=== PATIENT | male | born 1970 | race Hispanic/Latino ===

== ENCOUNTER 2019-05-10 21:45 | Emergency (ER) | payer BC ==
[2019-05-10] MEDS ORDERED: ASPIRIN 81MG TAB.CHEW ONE (21:57)
[2019-05-10 22:11] LABS: EOSINOPHILS % (AUTO) 3.5 % (0.0-8.0); HEMATOCRIT 44.4 % (42-54); LYMPHOCYTES % (AUTO) 23.6 % (21.0-51.0); MEAN CORPUSCULAR HEMOGLOBIN 31.7 pg (27.0-33.0); MEAN CORPUSCULAR HGB CONC 34.9 g/dL (32.0-36.0); MEAN CORPUSCULAR VOLUME 90.7 fL (79-99); MONOCYTES % (AUTO) 7.7 % (3.0-13.0); NEUTROPHILS % (AUTO) 64.2 % (40.0-77.0); NUCLEATED RED BLOOD CELLS 0.1 % (0.0-0.19); PLATELET COUNT (AUTO) 183 K/uL (130-400); RED CELL DISTRIBUTION WIDTH 12.8 % (11.0-15.5); WHITE BLOOD COUNT (AUTO) 5.2 K/uL (4.8-10.8)
[2019-05-10 22:20] LABS: CREATININE 0.8 mg/dL (0.5-1.5); POTASSIUM 3.5 mmol/L (3.5-5.1)
[2019-05-10 22:27] LABS: INR 0.89 (0.85-1.15); PARTIAL THROMBOPLASTIN TIME 26.4 SEC (26.3-35.5); PROTHROMBIN TIME 9.4 SEC (9.6-11.6)
[2019-05-10 22:33] LABS: BILIRUBIN,TOTAL 0.4 mg/dL (0.2-1.0); TOTAL PROTEIN, SERUM 7.9 g/dL (6.0-8.3)
[2019-05-10] MEDS ORDERED: IBUPROFEN 200 MG TAB ONE (23:52)
== END 2019-05-11 01:16 | disposition home or self-care (01) ==
LOC: EDH 21:45
DX: R07.89 Other chest pain (principal); E78.00 Pure hypercholesterolemia, unspecified; Z88.8 Allergy status to other drugs, medicaments and biological substances
CPT/HCPCS: 36415; 71045; 80053; 82550; 83874; 84484; 85025; 85610; 85730; 93005

== ENCOUNTER 2021-04-09 10:48 | Inpatient (IN) | payer BC ==
[~2021-04-09] VITALS: Ht 175.3 cm; Wt 76.4 kg
[2021-04-09 10:50] VITALS: BP 125/71
[2021-04-09 12:50] VITALS: BP 122/75
[2021-04-09 14:24] LABS: BASOPHILS % (AUTO) 0.3 % (0.0-5.0); HEMATOCRIT 43.2 % (42-54); LYMPHOCYTES % (AUTO) 26.4 % (21.0-51.0); MEAN CORPUSCULAR HGB CONC 34.5 g/dL (32.0-36.0); MEAN CORPUSCULAR VOLUME 89.8 fL (79-99); MONOCYTES % (AUTO) 7.1 % (3.0-13.0); NEUTROPHILS % (AUTO) 65.7 % (40.0-77.0); PLATELET COUNT (AUTO) 117 K/uL (130-400); RED BLOOD CELL COUNT(AUTO) 4.81 MIL/uL (4.50-6.20); RED CELL DISTRIBUTION WIDTH 11.7 % (11.0-15.5); WHITE BLOOD COUNT (AUTO) 3.6 K/uL (4.8-10.8)
[2021-04-09 14:24] LABS: APPEARANCE,URINE Clear (CLEAR); BILIRUBIN,URINE Negative (NEGATIVE); COLOR,URINE Yellow (YELLOW); GLUCOSE, URINE (UA) >=1000 mg/dL (NEGATIVE); KETONES,URINE Trace mg/dL (NEGATIVE); LEUKOCYTE ESTERASE ,URINE Negative (NEGATIVE); NITRATE,URINE Negative (NEGATIVE); OCCULT BLOOD,URINE Negative (NEGATIVE); PH,URINE 6.5 (5.0-8.0); PROTEIN,URINE POS 1+ mg/dL (NEGATIVE)
[2021-04-09] MEDS ORDERED: DEXAMETHASONE SOD PHOSPHATE 10MG/ML 1ML VIAL ONE (14:27)
[2021-04-09 14:29] LABS: CREATININE 0.8 mg/dL (0.5-1.5); POTASSIUM 3.6 mmol/L (3.5-5.1)
[2021-04-09 14:34] LABS: ALBUMIN 3.1 g/dL (3.5-5.0); BILIRUBIN,TOTAL 0.4 mg/dL (0.2-1.0); TOTAL PROTEIN, SERUM 6.6 g/dL (6.0-8.3)
[2021-04-09 14:42] VITALS: BP 129/76
[2021-04-09 14:50] LABS: RBC,URINE 0-1 /HPF (0-1); WBC,URINE 0-1 /HPF (0-1)
[2021-04-09 14:51] LABS: BACTERIA,URINE Rare /HPF (None Seen); SQUAMOUS EPITHELIAL CELL,UR Rare /HPF (0-2)
[2021-04-09] MEDS ORDERED: GLUCAGON 1MG KIT 1 MG ML IM PRN ×2 (15:00→16:30)
[2021-04-09] MEDS ORDERED: DEXAMETHASONE IV ONE ×2 (15:00)
[2021-04-09] MEDS ORDERED: ONDANSETRON ODT 4MG TAB PO PRN (15:00)
[2021-04-09] MEDS ORDERED: [UNRECOGNIZED DRUG - OTHER] IV ONE ×2 (15:00)
[2021-04-09] MEDS ORDERED: DEXTROSE 50%-WATER 50 ML DISP.SYRIN IV PRN ×2 (15:00→16:30)
[2021-04-09] MEDS: CEFTRIAXONE 1G VIAL IVP SCH (15:27)
[2021-04-09] MEDS: ACETAMINOPHEN 325 MG TAB PO PRN ×2 (15:39→21:43)
[2021-04-09] MEDS ORDERED: KCL 20 MEQ ERTAB PO PRN (16:30)
[2021-04-09] MEDS ORDERED: POTASSIUM CHLORIDE 20MEQ/100ML 100 ML IV PRN (16:30)
[2021-04-09] MEDS ORDERED: INSULIN R PO SS1 SQ SCH (16:30)
[2021-04-09] MEDS ORDERED: ALBUTEROL INHALER 90MCG/INH IH PRN (16:30)
[2021-04-09] MEDS ORDERED: POTASSIUM CHLORIDE 10% ELIXIR 20 MEQ/15 ML UDCUP PO PRN (16:30)
[2021-04-09] MEDS ORDERED: LIDOCAINE HCL-MPF 1% 2ML VIAL IV PRN (16:30)
[2021-04-09] MEDS: INSULIN HUMULIN R 100 UNIT/ML 3ML SQ SCH ×2 (16:30→21:58)
[2021-04-09 17:12] LABS: CREATINE KINASE, TOTAL 49 U/L (21-232); MYOGLOBIN 22 ng/mL (10-92); TROPONIN I < 0.04 ng/mL (0.00-0.06)
[2021-04-09 18:21] VITALS: BP 115/73
[2021-04-09] MEDS ORDERED: METF-444 PO (18:45)
[2021-04-09] MEDS ORDERED: GLYB5TAB8 PO (18:45)
[2021-04-09 20:11] VITALS: BP 111/66
[2021-04-09] MEDS ORDERED: SOLU-MEDROL 40MG VIAL IVP SCH (21:00)
[2021-04-09] MEDS: DOXYCYCLINE HYCLATE 100 MG TABLET PO SCH (21:42)
[2021-04-09] MEDS: FAMOTIDINE 20MG TAB PO SCH (21:42)
[2021-04-09 23:46] VITALS: BP 120/73
[2021-04-10 04:00] VITALS: BP 107/60
[2021-04-10 04:28] LABS: HEMATOCRIT 41.4 % (42-54); LYMPHOCYTES % (AUTO) 25.9 % (21.0-51.0); MEAN CORPUSCULAR HEMOGLOBIN 30.5 pg (27.0-33.0); MEAN CORPUSCULAR VOLUME 87.2 fL (79-99); MONOCYTES % (AUTO) 9.8 % (3.0-13.0); PLATELET COUNT (AUTO) 123 K/uL (130-400); RED BLOOD CELL COUNT(AUTO) 4.75 MIL/uL (4.50-6.20); RED CELL DISTRIBUTION WIDTH 11.6 % (11.0-15.5); WHITE BLOOD COUNT (AUTO) 3.2 K/uL (4.8-10.8)
[2021-04-10 04:33] LABS: HEMOGLOBIN A1C 10.4 % (4.0-6.0)
[2021-04-10 04:38] LABS: ALBUMIN 2.9 g/dL (3.5-5.0); BILIRUBIN,TOTAL 0.4 mg/dL (0.2-1.0); CREATININE 0.8 mg/dL (0.5-1.5); TOTAL PROTEIN, SERUM 6.2 g/dL (6.0-8.3)
[2021-04-10 08:00] VITALS: BP 126/74
[2021-04-10] MEDS: DOXYCYCLINE HYCLATE 100 MG TABLET PO SCH ×2 (08:44→20:59)
[2021-04-10] MEDS: ASPIRIN 81 MG EC TAB PO SCH (08:44)
[2021-04-10] MEDS: FAMOTIDINE 20MG TAB PO SCH ×2 (08:44→21:00)
[2021-04-10] MEDS: DEXAMETHASONE 4 MG TAB PO SCH (08:44)
[2021-04-10] MEDS: ENOXAPARIN SODIUM 40 MG/0.4 ML SYRINGE SQ SCH (08:44)
[2021-04-10] MEDS: INSULIN HUMULIN R 100 UNIT/ML 3ML SQ SCH ×3 (08:46→18:11)
[2021-04-10] MEDS: GUAIFENESIN-DM 200/20 MG 10 ML PO PRN (11:56)
[2021-04-10 12:00] VITALS: BP 121/69
[2021-04-10] MEDS: CEFTRIAXONE 1G VIAL IVP SCH (14:57)
[2021-04-10 16:00] VITALS: BP 127/66
[2021-04-10 20:00] VITALS: BP 122/68
[2021-04-10 23:48] VITALS: BP 111/75
[2021-04-11] MEDS: INSULIN HUMULIN R 100 UNIT/ML 3ML SQ SCH ×5 (00:26→20:25)
[2021-04-11 03:55] VITALS: BP 122/69
[2021-04-11 04:48] LABS: BASOPHILS % (AUTO) 0.2 % (0.0-5.0); HEMATOCRIT 41.7 % (42-54); LYMPHOCYTES % (AUTO) 21.7 % (21.0-51.0); MEAN CORPUSCULAR HEMOGLOBIN 30.8 pg (27.0-33.0); MEAN CORPUSCULAR HGB CONC 34.8 g/dL (32.0-36.0); MEAN CORPUSCULAR VOLUME 88.5 fL (79-99); MONOCYTES % (AUTO) 8.9 % (3.0-13.0); NEUTROPHILS % (AUTO) 68.7 % (40.0-77.0); PLATELET COUNT (AUTO) 146 K/uL (130-400); RED BLOOD CELL COUNT(AUTO) 4.71 MIL/uL (4.50-6.20); RED CELL DISTRIBUTION WIDTH 11.4 % (11.0-15.5); WHITE BLOOD COUNT (AUTO) 4.4 K/uL (4.8-10.8)
[2021-04-11 05:08] LABS: CREATININE 0.9 mg/dL (0.5-1.5); POTASSIUM 3.8 mmol/L (3.5-5.1)
[2021-04-11 08:04] VITALS: BP 113/75
[2021-04-11] MEDS: ENOXAPARIN SODIUM 40 MG/0.4 ML SYRINGE SQ SCH (08:37)
[2021-04-11] MEDS: DOXYCYCLINE HYCLATE 100 MG TABLET PO SCH ×2 (08:38→20:22)
[2021-04-11] MEDS: FAMOTIDINE 20MG TAB PO SCH ×2 (08:38→20:22)
[2021-04-11] MEDS: ACETAMINOPHEN 325 MG TAB PO PRN (08:38)
[2021-04-11] MEDS: ASPIRIN 81 MG EC TAB PO SCH (08:38)
[2021-04-11] MEDS: DEXAMETHASONE 4 MG TAB PO SCH (08:38)
[2021-04-11 12:02] VITALS: BP 106/76
[2021-04-11] MEDS: CEFTRIAXONE 1G VIAL IVP SCH (15:10)
[2021-04-11 16:00] VITALS: BP 123/82
[2021-04-11 19:00] VITALS: BP 122/79
[2021-04-11] MEDS: GUAIFENESIN-DM 200/20 MG 10 ML PO PRN (20:22)
[2021-04-11 23:00] VITALS: BP 109/63
[2021-04-12 03:19] VITALS: BP 123/63
[2021-04-12] MEDS: INSULIN HUMULIN R 100 UNIT/ML 3ML SQ SCH ×4 (06:14→21:26)
[2021-04-12] MEDS: ASPIRIN 81 MG EC TAB PO SCH (07:55)
[2021-04-12] MEDS: DEXAMETHASONE 4 MG TAB PO SCH (07:55)
[2021-04-12] MEDS: DOXYCYCLINE HYCLATE 100 MG TABLET PO SCH ×2 (07:56→21:25)
[2021-04-12] MEDS: FAMOTIDINE 20MG TAB PO SCH ×2 (07:56→21:25)
[2021-04-12] MEDS: ENOXAPARIN SODIUM 40 MG/0.4 ML SYRINGE SQ SCH (07:57)
[2021-04-12 08:00] VITALS: BP 119/68
[2021-04-12 12:00] VITALS: BP 122/74
[2021-04-12] MEDS: CEFTRIAXONE 1G VIAL IVP SCH (14:51)
[2021-04-12 15:00] VITALS: BP 126/80
[2021-04-12 19:30] VITALS: BP 113/69
[2021-04-12] MEDS: GUAIFENESIN-DM 200/20 MG 10 ML PO PRN (21:58)
[2021-04-12 23:30] VITALS: BP 103/51
[2021-04-13 03:45] VITALS: BP 117/68
[2021-04-13 04:23] LABS: ABG BASE EXCESS -0.4 mmol/L (-2.0-3.0); ABG HCO3 23.1 mmol/L (21.0-28.0); ABG OXYGEN SATURATION 92.9 % (95.0-99.0); ABG PCO2 35 mmHg (35-48)
[2021-04-13 04:51] LABS: HEMATOCRIT 41.6 % (42-54); LYMPHOCYTES % (AUTO) 13.9 % (21.0-51.0); MEAN CORPUSCULAR HEMOGLOBIN 30.8 pg (27.0-33.0); MEAN CORPUSCULAR HGB CONC 35.8 g/dL (32.0-36.0); MEAN CORPUSCULAR VOLUME 86.1 fL (79-99); MONOCYTES % (AUTO) 10.7 % (3.0-13.0); NEUTROPHILS % (AUTO) 74.9 % (40.0-77.0); PLATELET COUNT (AUTO) 173 K/uL (130-400); RED BLOOD CELL COUNT(AUTO) 4.83 MIL/uL (4.50-6.20); RED CELL DISTRIBUTION WIDTH 11.3 % (11.0-15.5); WHITE BLOOD COUNT (AUTO) 5.7 K/uL (4.8-10.8)
[2021-04-13 05:09] LABS: ALBUMIN 2.8 g/dL (3.5-5.0); BILIRUBIN,TOTAL 0.5 mg/dL (0.2-1.0); CREATININE 0.7 mg/dL (0.5-1.5); MAGNESIUM 2.3 mg/dL (1.80-2.40); PHOSPHORUS 3.8 mg/dL (2.5-4.9); POTASSIUM 3.8 mmol/L (3.5-5.1); TOTAL PROTEIN, SERUM 6.8 g/dL (6.0-8.3)
[2021-04-13] MEDS: INSULIN HUMULIN R 100 UNIT/ML 3ML SQ SCH ×4 (06:39→19:59)
[2021-04-13 08:00] VITALS: BP 122/76
[2021-04-13] MEDS: DOXYCYCLINE HYCLATE 100 MG TABLET PO SCH ×2 (08:20→19:40)
[2021-04-13] MEDS: ASPIRIN 81 MG EC TAB PO SCH (08:20)
[2021-04-13] MEDS: DEXAMETHASONE 4 MG TAB PO SCH (08:21)
[2021-04-13] MEDS: ENOXAPARIN SODIUM 40 MG/0.4 ML SYRINGE SQ SCH (08:21)
[2021-04-13] MEDS: FAMOTIDINE 20MG TAB PO SCH ×2 (08:21→19:40)
[2021-04-13] MEDS: ACETAMINOPHEN 325 MG TAB PO PRN (11:41)
[2021-04-13 12:00] VITALS: BP 127/81
[2021-04-13] MEDS: CEFTRIAXONE 1G VIAL IVP SCH (14:37)
[2021-04-13] MEDS: SOLU-MEDROL 125MG VIAL IVP SCH ×2 (14:37→22:00)
[2021-04-13 16:00] VITALS: BP 110/68
[2021-04-13] MEDS: GUAIFENESIN-DM 200/20 MG 10 ML PO PRN (19:57)
[2021-04-13] MEDS: INSULIN GLARGINE 100 UNITS/ML 10 ML VIAL SQ SCH (19:58)
[2021-04-13 21:00] VITALS: BP 118/69
[2021-04-14] VITALS (7 sets, daily range): BP systolic 105–121; BP diastolic 60–77
[2021-04-14] MEDS: SOLU-MEDROL 125MG VIAL IVP SCH ×2 (04:46→20:24)
[2021-04-14 05:07] LABS: CREATININE 0.9 mg/dL (0.5-1.5); CRP QUANTITATIVE 27.3 mg/L (0.00-9.0); POTASSIUM 4.6 mmol/L (3.5-5.1)
[2021-04-14] MEDS: INSULIN HUMULIN R 100 UNIT/ML 3ML SQ SCH ×4 (06:35→20:28)
[2021-04-14] MEDS: DOXYCYCLINE HYCLATE 100 MG TABLET PO SCH ×2 (08:16→20:24)
[2021-04-14] MEDS: ASPIRIN 81 MG EC TAB PO SCH (08:16)
[2021-04-14] MEDS: FAMOTIDINE 20MG TAB PO SCH ×2 (08:16→20:24)
[2021-04-14] MEDS: ENOXAPARIN SODIUM 40 MG/0.4 ML SYRINGE SQ SCH (08:21)
[2021-04-14] MEDS: CEFTRIAXONE 1G VIAL IVP SCH (16:46)
[2021-04-14] MEDS: GUAIFENESIN-DM 200/20 MG 10 ML PO PRN (20:24)
[2021-04-14] MEDS: ACETAMINOPHEN 325 MG TAB PO PRN (20:25)
[2021-04-14] MEDS: INSULIN GLARGINE 100 UNITS/ML 10 ML VIAL SQ SCH (20:27)
[2021-04-15 03:00] VITALS: BP 114/69
[2021-04-15 04:11] LABS: ABG BASE EXCESS 1.9 mmol/L (-2.0-3.0); ABG OXYGEN SATURATION 94.9 % (95.0-99.0); ABG PCO2 39 mmHg (35-48)
[2021-04-15 04:45] LABS: ALBUMIN 2.7 g/dL (3.5-5.0); BILIRUBIN,TOTAL 0.6 mg/dL (0.2-1.0); CREATININE 0.7 mg/dL (0.5-1.5); POTASSIUM 4.2 mmol/L (3.5-5.1); TOTAL PROTEIN, SERUM 6.4 g/dL (6.0-8.3)
[2021-04-15] MEDS: INSULIN HUMULIN R 100 UNIT/ML 3ML SQ SCH ×4 (06:33→20:27)
[2021-04-15 07:36] VITALS: BP 125/75
[2021-04-15] MEDS: FAMOTIDINE 20MG TAB PO SCH ×2 (09:12→20:21)
[2021-04-15] MEDS: DOXYCYCLINE HYCLATE 100 MG TABLET PO SCH ×2 (09:12→20:21)
[2021-04-15] MEDS: ASPIRIN 81 MG EC TAB PO SCH (09:12)
[2021-04-15] MEDS: ENOXAPARIN SODIUM 40 MG/0.4 ML SYRINGE SQ SCH (09:12)
[2021-04-15] MEDS: SOLU-MEDROL 125MG VIAL IVP SCH ×2 (09:12→20:21)
[2021-04-15 12:00] VITALS: BP 126/81
[2021-04-15] MEDS: CEFTRIAXONE 1G VIAL IVP SCH (14:27)
[2021-04-15 16:10] VITALS: BP 110/70
[2021-04-15] MEDS: GUAIFENESIN-DM 200/20 MG 10 ML PO PRN (20:21)
[2021-04-15] MEDS: ACETAMINOPHEN 325 MG TAB PO PRN (20:22)
[2021-04-15] MEDS: INSULIN GLARGINE 100 UNITS/ML 10 ML VIAL SQ SCH (20:28)
[2021-04-15 20:31] VITALS: BP 110/69
[2021-04-16] VITALS (8 sets, daily range): BP systolic 102–130; BP diastolic 49–83
[2021-04-16 04:33] LABS: HEMATOCRIT 44.8 % (42-54); MEAN CORPUSCULAR HEMOGLOBIN 30.4 pg (27.0-33.0); MEAN CORPUSCULAR HGB CONC 34.2 g/dL (32.0-36.0); MEAN CORPUSCULAR VOLUME 88.9 fL (79-99); RED BLOOD CELL COUNT(AUTO) 5.04 MIL/uL (4.50-6.20); RED CELL DISTRIBUTION WIDTH 11.4 % (11.0-15.5); WHITE BLOOD COUNT (AUTO) 9.5 K/uL (4.8-10.8)
[2021-04-16 04:54] LABS: ALBUMIN 2.8 g/dL (3.5-5.0); BILIRUBIN,TOTAL 0.6 mg/dL (0.2-1.0); CREATININE 0.8 mg/dL (0.5-1.5); POTASSIUM 4.5 mmol/L (3.5-5.1); TOTAL PROTEIN, SERUM 6.5 g/dL (6.0-8.3)
[2021-04-16] MEDS: INSULIN HUMULIN R 100 UNIT/ML 3ML SQ SCH ×4 (06:43→21:24)
[2021-04-16] MEDS: SOLU-MEDROL 125MG VIAL IVP SCH ×2 (08:45→21:20)
[2021-04-16] MEDS: FAMOTIDINE 20MG TAB PO SCH ×2 (08:46→21:20)
[2021-04-16] MEDS: DOXYCYCLINE HYCLATE 100 MG TABLET PO SCH ×2 (08:46→21:20)
[2021-04-16] MEDS: ASPIRIN 81 MG EC TAB PO SCH (08:46)
[2021-04-16] MEDS: ENOXAPARIN SODIUM 40 MG/0.4 ML SYRINGE SQ SCH (08:46)
[2021-04-16] MEDS ORDERED: POLYETHYLENE GLYCOL 3350 17 GM POWD.PACK PO ONE (09:00)
[2021-04-16] MEDS: POLYETHYLENE GLYCOL 3350 17 GM POWD.PACK PO SCH (10:28)
[2021-04-16] MEDS: CEFTRIAXONE 1G VIAL IVP SCH (15:21)
[2021-04-16] MEDS: INSULIN GLARGINE 100 UNITS/ML 10 ML VIAL SQ SCH (21:24)
[2021-04-17 04:17] VITALS: BP 112/73
[2021-04-17] MEDS: INSULIN HUMULIN R 100 UNIT/ML 3ML SQ SCH ×2 (05:58→12:14)
[2021-04-17] MEDS: POLYETHYLENE GLYCOL 3350 17 GM POWD.PACK PO SCH (08:38)
[2021-04-17] MEDS: DOXYCYCLINE HYCLATE 100 MG TABLET PO SCH (08:38)
[2021-04-17] MEDS: ASPIRIN 81 MG EC TAB PO SCH (08:38)
[2021-04-17] MEDS: SOLU-MEDROL 125MG VIAL IVP SCH (08:38)
[2021-04-17] MEDS: ENOXAPARIN SODIUM 40 MG/0.4 ML SYRINGE SQ SCH (08:38)
[2021-04-17] MEDS: FAMOTIDINE 20MG TAB PO SCH (08:38)
[2021-04-17 11:03] VITALS: BP 100/66
== END 2021-04-17 15:30 | disposition home or self-care (01) | DRG 177 ==
LOC: EDH 10:48 → EDHIP 14:10 → 2BH 20:54
PROVIDERS: ADMIT Internal Medicine Infectious Disease; ATTEND Internal Medicine Infectious Disease
DX: U07.1 COVID-19 (principal); J12.82 Pneumonia due to coronavirus disease 2019; J96.01 Acute respiratory failure with hypoxia; B37.0 Candidal stomatitis; E11.9 Type 2 diabetes mellitus without complications; E66.9 Obesity, unspecified; E78.00 Pure hypercholesterolemia, unspecified; I10 Essential (primary) hypertension; K12.30 Oral mucositis (ulcerative), unspecified; Z83.3 Family history of diabetes mellitus; Z68.24 Body mass index [BMI] 24.0-24.9, adult
CPT/HCPCS: 36415; 36600; 71045; 80048; 80053; 81001; 82550; 82728; 82803; 82948; 83036; 83615; 83735; 83874; 84100; 84145; 84484; 85025; 85027; 85378; 86140; 87040; 87635; 87804; 93005; 94760; C9803; G0378; J0696; J1100; J1650; J1815; J2930; J8540

== ENCOUNTER 2021-08-17 20:28 | Emergency (ER) | payer BC, OTHER ==
[~2021-08-17] VITALS: Ht 172.7 cm; Wt 83.9 kg
[~2021-08-17 20:28] MED LIST: GLYB5TAB8 PO; METF-444 PO
[2021-08-17 21:07] LABS: APPEARANCE,URINE Clear (CLEAR); BILIRUBIN,URINE Negative (NEGATIVE); COLOR,URINE Yellow (YELLOW); GLUCOSE, URINE (UA) >=1000 mg/dL (NEGATIVE); KETONES,URINE Negative (NEGATIVE); LEUKOCYTE ESTERASE ,URINE Negative (NEGATIVE); NITRATE,URINE Negative (NEGATIVE); OCCULT BLOOD,URINE Negative (NEGATIVE); PH,URINE 6.5 (5.0-8.0); PROTEIN,URINE Negative (NEGATIVE); UROBILINOGEN,URINE 0.2 mg/dL (0.2-1.0)
[2021-08-17 21:17] LABS: RBC,URINE 0-1 /HPF (0-1); WBC,URINE 0-1 /HPF (0-1)
[2021-08-17 21:18] LABS: BASOPHILS % (AUTO) 0.6 % (0.0-5.0); EOSINOPHILS % (AUTO) 3.3 % (0.0-8.0); HEMATOCRIT 42.3 % (42-54); LYMPHOCYTES % (AUTO) 27.8 % (21.0-51.0); MEAN CORPUSCULAR HEMOGLOBIN 30.7 pg (27.0-33.0); MEAN CORPUSCULAR HGB CONC 36.2 g/dL (32.0-36.0); MEAN CORPUSCULAR VOLUME 84.9 fL (79-99); MONOCYTES % (AUTO) 7.5 % (3.0-13.0); NEUTROPHILS % (AUTO) 60.5 % (40.0-77.0); PLATELET COUNT (AUTO) 212 K/uL (130-400); RED BLOOD CELL COUNT(AUTO) 4.98 MIL/uL (4.50-6.20); RED CELL DISTRIBUTION WIDTH 11.4 % (11.0-15.5); WHITE BLOOD COUNT (AUTO) 7.1 K/uL (4.8-10.8)
[2021-08-17 21:18] LABS: BACTERIA,URINE None Seen /HPF (None Seen); SQUAMOUS EPITHELIAL CELL,UR None Seen /HPF (0-2)
[2021-08-17 21:34] LABS: POTASSIUM 3.8 mmol/L (3.5-5.1)
[2021-08-17 21:39] LABS: ALBUMIN 3.8 g/dL (3.5-5.0); BILIRUBIN,TOTAL 0.2 mg/dL (0.2-1.0); TOTAL PROTEIN, SERUM 7.7 g/dL (6.0-8.3)
[2021-08-17] MEDS ORDERED: 0.9%NACL 1000ML 1,000 ML IV ONE (22:00)
[2021-08-17] MEDS ORDERED: INSULIN HUMULIN R 100 UNIT/ML 3ML SQ ONE (22:00)
[2021-08-17 22:49] VITALS: BP 129/79
== END 2021-08-17 22:52 | disposition home or self-care (01) ==
LOC: EDH 20:28
DX: R07.89 Other chest pain (principal); E11.65 Type 2 diabetes mellitus with hyperglycemia; F41.9 Anxiety disorder, unspecified; E78.00 Pure hypercholesterolemia, unspecified; K21.9 Gastro-esophageal reflux disease without esophagitis; Z79.4 Long term (current) use of insulin
CPT/HCPCS: 36415; 71045; 80053; 81001; 82948; 84484; 85025; 93005; 96360; 96372; 99285; J1815; J7030

== ENCOUNTER 2021-11-20 20:55 | Emergency (ER) | payer BC ==
[~2021-11-20] VITALS: Ht 172.7 cm; Wt 83.0 kg
[2021-11-20 21:31] LABS: BASOPHILS % (AUTO) 0.6 % (0.0-5.0); EOSINOPHILS % (AUTO) 0.8 % (0.0-8.0); HEMATOCRIT 43.1 % (42-54); LYMPHOCYTES % (AUTO) 22.2 % (21.0-51.0); MEAN CORPUSCULAR HEMOGLOBIN 30.3 pg (27.0-33.0); MEAN CORPUSCULAR HGB CONC 34.6 g/dL (32.0-36.0); MEAN CORPUSCULAR VOLUME 87.8 fL (79-99); MONOCYTES % (AUTO) 5.3 % (3.0-13.0); NEUTROPHILS % (AUTO) 70.7 % (40.0-77.0); PLATELET COUNT (AUTO) 207 K/uL (130-400); RED BLOOD CELL COUNT(AUTO) 4.91 MIL/uL (4.50-6.20); RED CELL DISTRIBUTION WIDTH 11.9 % (11.0-15.5); WHITE BLOOD COUNT (AUTO) 8.9 K/uL (4.8-10.8)
[2021-11-20 21:50] LABS: ALBUMIN 4.2 g/dL (3.5-5.0); BILIRUBIN,TOTAL 0.4 mg/dL (0.2-1.0); TOTAL PROTEIN, SERUM 7.4 g/dL (6.0-8.3)
[2021-11-20] MEDS ORDERED: MAG/ALUM/SIMETH 30 ML UDCUP PO ONE (22:00)
[2021-11-20 22:04] LABS: APPEARANCE,URINE Cloudy (CLEAR); BILIRUBIN,URINE Negative (NEGATIVE); COLOR,URINE Yellow (YELLOW); GLUCOSE, URINE (UA) Negative (NEGATIVE); KETONES,URINE Negative (NEGATIVE); LEUKOCYTE ESTERASE ,URINE Trace (NEGATIVE); NITRATE,URINE Negative (NEGATIVE); OCCULT BLOOD,URINE Negative (NEGATIVE); PH,URINE 7.5 (5.0-8.0); PROTEIN,URINE Negative (NEGATIVE)
[2021-11-20 22:21] LABS: AMPHET/METH SCREEN,URINE NEGATIVE (NEGATIVE); BARBITURATE SCREEN, URINE NEGATIVE (NEGATIVE); BENZODIAZEPINES SCREEN,URINE NEGATIVE (NEGATIVE); CANNABINOID SCREEN,URINE NEGATIVE (NEGATIVE); COCAINE SCREEN,URINE NEGATIVE (NEGATIVE); OPIATE SCREEN,URINE NEGATIVE (NEGATIVE); PHENCYCLIDINE SCREEN,URINE NEGATIVE (NEGATIVE)
[2021-11-20 22:25] LABS: BACTERIA,URINE None Seen /HPF (None Seen); RBC,URINE None Seen /HPF (0-1); WBC,URINE 0-1 /HPF (0-1)
[2021-11-20] MEDS ORDERED: FAMO-136 PO (23:36)
[2021-11-20 23:49] VITALS: BP 129/82
== END 2021-11-20 23:55 | disposition home or self-care (01) ==
LOC: EDH 20:59
DX: K21.9 Gastro-esophageal reflux disease without esophagitis (principal)
CPT/HCPCS: 36415; 71045; 80053; 80305; 81001; 84484; 85025; 93005

== ENCOUNTER → 2022-01-02 | Outpatient (CLI) | payer OTHER ==
[~2022-01-02] MED LIST changes: +FAMO-136 PO
== END | disposition home or self-care (01) ==
LOC: OIH 12:48
PROVIDERS: ATTEND Internal Medicine
DX: Z13.6 Encounter for screening for cardiovascular disorders (principal); R93.1 Abnormal findings on diagnostic imaging of heart and coronary circulation
CPT/HCPCS: 75571

== ENCOUNTER 2022-04-27 20:35 | Emergency (ER) | payer BC, OTHER ==
[~2022-04-27] VITALS: Ht 175.3 cm; Wt 81.6 kg
[2022-04-27 21:00] VITALS: BP 127/80
[2022-04-27 21:01] LABS: BASOPHILS % (AUTO) 0.8 % (0.0-5.0); EOSINOPHILS % (AUTO) 3.7 % (0.0-8.0); HEMATOCRIT 42.1 % (42-54); LYMPHOCYTES % (AUTO) 14.3 % (21.0-51.0); MEAN CORPUSCULAR HEMOGLOBIN 30.5 pg (27.0-33.0); MEAN CORPUSCULAR HGB CONC 35.6 g/dL (32.0-36.0); MEAN CORPUSCULAR VOLUME 85.7 fL (79-99); MONOCYTES % (AUTO) 9.5 % (3.0-13.0); NEUTROPHILS % (AUTO) 71.2 % (40.0-77.0); PLATELET COUNT (AUTO) 206 K/uL (130-400); RED BLOOD CELL COUNT(AUTO) 4.91 MIL/uL (4.50-6.20); RED CELL DISTRIBUTION WIDTH 11.4 % (11.0-15.5); WHITE BLOOD COUNT (AUTO) 7.5 K/uL (4.8-10.8)
[2022-04-27 21:18] LABS: POTASSIUM 3.7 mmol/L (3.5-5.1)
[2022-04-27 21:23] LABS: ALBUMIN 4.1 g/dL (3.5-5.0); TOTAL PROTEIN, SERUM 7.4 g/dL (6.0-8.3)
[2022-04-27] MEDS ORDERED: HYDR-3421 PO (21:29)
[2022-04-27] MEDS ORDERED: HYDROXYZINE 25 MG TABLET PO ONE (21:30)
[2022-04-27 21:31] LABS: APPEARANCE,URINE CLEAR (CLEAR); BILIRUBIN,URINE NEGATIVE (NEGATIVE); COLOR,URINE YELLOW (YELLOW); GLUCOSE, URINE (UA) NEGATIVE (NEGATIVE); KETONES,URINE 5 mg/dL (NEGATIVE); LEUKOCYTE ESTERASE ,URINE NEGATIVE (NEGATIVE); NITRATE,URINE NEGATIVE (NEGATIVE); OCCULT BLOOD,URINE NEGATIVE (NEGATIVE); PH,URINE 5.5 (5.0-8.0); PROTEIN,URINE NEGATIVE (NEGATIVE)
[2022-04-27] MEDS ORDERED: HYDROXYZINE 25 MG TABLET ONE (21:33)
== END 2022-04-27 21:45 | disposition home or self-care (01) ==
LOC: EDH 20:35
DX: E11.65 Type 2 diabetes mellitus with hyperglycemia (principal); R03.0 Elevated blood-pressure reading, without diagnosis of hypertension; R00.0 Tachycardia, unspecified; F41.9 Anxiety disorder, unspecified; E78.00 Pure hypercholesterolemia, unspecified; K21.9 Gastro-esophageal reflux disease without esophagitis; Z79.84 Long term (current) use of oral hypoglycemic drugs
CPT/HCPCS: 36415; 71045; 80053; 81003; 83690; 84484; 85025; 93005

== ENCOUNTER 2022-12-15 10:39 | Emergency (ER) | payer BC ==
[~2022-12-15] VITALS: Ht 175.3 cm; Wt 82.1 kg
[~2022-12-15 10:39] MED LIST changes: +HYDR-3421 PO
[2022-12-15 11:31] LABS: APPEARANCE,URINE CLEAR (CLEAR); BILIRUBIN,URINE NEGATIVE (NEGATIVE); COLOR,URINE YELLOW (YELLOW); GLUCOSE, URINE (UA) >=1000 mg/dL (NEGATIVE); KETONES,URINE NEGATIVE (NEGATIVE); LEUKOCYTE ESTERASE ,URINE NEGATIVE Leu/uL (NEGATIVE); NITRATE,URINE NEGATIVE (NEGATIVE); OCCULT BLOOD,URINE NEGATIVE (NEGATIVE); PH,URINE 5.5 (5.0-8.0); PROTEIN,URINE NEGATIVE (NEGATIVE); UROBILINOGEN,URINE 0.2 mg/dL (0.2-1.0)
[2022-12-15 11:34] LABS: MUCUS,URINE RARE LPF (None Seen); RBC,URINE 0-1 /HPF (0-1); WBC,URINE 0-1 /HPF (0-1)
[2022-12-15 11:41] LABS: BASOPHILS % (AUTO) 1.1 % (0.0-5.0); EOSINOPHILS % (AUTO) 6.4 % (0.0-8.0); HEMATOCRIT 43.5 % (42-54); LYMPHOCYTES % (AUTO) 27.1 % (21.0-51.0); MEAN CORPUSCULAR HEMOGLOBIN 30.8 pg (27.0-33.0); MEAN CORPUSCULAR HGB CONC 36.1 g/dL (32.0-36.0); MEAN CORPUSCULAR VOLUME 85.3 fL (79-99); MONOCYTES % (AUTO) 5.5 % (3.0-13.0); NEUTROPHILS % (AUTO) 59.4 % (40.0-77.0); PLATELET COUNT (AUTO) 191 K/uL (130-400); RED CELL DISTRIBUTION WIDTH 11.7 % (11.0-15.5); WHITE BLOOD COUNT (AUTO) 5.5 K/uL (4.8-10.8)
[2022-12-15 11:51] LABS: CREATININE 0.9 mg/dL (0.5-1.5); POTASSIUM 3.8 mmol/L (3.5-5.1)
[2022-12-15 12:04] LABS: ALBUMIN 3.7 g/dL (3.5-5.0); TOTAL PROTEIN, SERUM 6.9 g/dL (6.0-8.3)
[2022-12-15] MEDS ORDERED: KETOROLAC 30MG VIAL (30MG/ML) IVP ONE (13:00)
[2022-12-15] MEDS ORDERED: KETOROLAC 30MG VIAL (30MG/ML) ONE (13:07)
[2022-12-15] MEDS ORDERED: NAPR500T6 PO (14:17)
[2022-12-15 14:38] VITALS: BP 120/72
== END 2022-12-15 14:44 | disposition home or self-care (01) ==
LOC: EDH 10:39
DX: N50.812 Left testicular pain (principal); F41.9 Anxiety disorder, unspecified; M19.90 Unspecified osteoarthritis, unspecified site; E11.9 Type 2 diabetes mellitus without complications; E78.00 Pure hypercholesterolemia, unspecified; K21.9 Gastro-esophageal reflux disease without esophagitis; Z79.1 Long term (current) use of non-steroidal anti-inflammatories (NSAID); Z79.84 Long term (current) use of oral hypoglycemic drugs
CPT/HCPCS: 99284; 96374; 80053; 85025; 83605; 81001; 36415; 76870; J1885

== ENCOUNTER 2023-10-31 10:39 | Emergency (ER) | payer BC, SELFPAY ==
[~2023-10-31] VITALS: Ht 175.3 cm; Wt 82.6 kg
[~2023-10-31 10:39] MED LIST changes: +NAPR500T6 PO
[2023-10-31 10:53] VITALS: BP 132/84; PULSE 79; RESP 16; O2SAT 99
[2023-10-31 11:12] LABS: APPEARANCE,URINE CLEAR (CLEAR); BILIRUBIN,URINE NEGATIVE (NEGATIVE); COLOR,URINE LIGHT-YELLOW (YELLOW); GLUCOSE, URINE (UA) >=1000 mg/dL (NEGATIVE); KETONES,URINE NEGATIVE (NEGATIVE); LEUKOCYTE ESTERASE ,URINE NEGATIVE Leu/uL (NEGATIVE); NITRATE,URINE NEGATIVE (NEGATIVE); OCCULT BLOOD,URINE NEGATIVE (NEGATIVE); PROTEIN,URINE NEGATIVE (NEGATIVE); UROBILINOGEN,URINE 0.2 mg/dL (0.2-1.0)
[2023-10-31 11:13] LABS: ADD UA MICROSCOPIC YES
[2023-10-31 11:13] LABS: HEMATOCRIT 44.6 % (42-54); MEAN CORPUSCULAR HEMOGLOBIN 31.2 pg (27.0-33.0); MEAN CORPUSCULAR HGB CONC 35.4 g/dL (32.0-36.0); RED BLOOD CELL COUNT(AUTO) 5.07 MIL/uL (4.50-6.20); RED CELL DISTRIBUTION WIDTH 11.4 % (11.0-15.5); WHITE BLOOD COUNT (AUTO) 6.5 K/uL (4.8-10.8)
[2023-10-31 11:15] LABS: RBC,URINE 0-1 /HPF (0-1); WBC,URINE 0-1 /HPF (0-1)
[2023-10-31 11:25] LABS: CREATININE 0.9 mg/dL (0.5-1.5)
[2023-10-31 11:29] LABS: ALBUMIN 3.9 g/dL (3.5-5.0); BILIRUBIN,TOTAL 0.5 mg/dL (0.2-1.0); TOTAL PROTEIN, SERUM 7.8 g/dL (6.0-8.3)
[2023-10-31] MEDS ORDERED: LACT10SO5 PO (13:01)
== END 2023-10-31 13:21 | disposition home or self-care (01) ==
LOC: EDH 10:39
DX: K59.00 Constipation, unspecified (principal); E11.65 Type 2 diabetes mellitus with hyperglycemia; E86.0 Dehydration; E78.00 Pure hypercholesterolemia, unspecified; F41.9 Anxiety disorder, unspecified; K21.9 Gastro-esophageal reflux disease without esophagitis; M19.90 Unspecified osteoarthritis, unspecified site; Z79.84 Long term (current) use of oral hypoglycemic drugs
CPT/HCPCS: 36415; 74018; 80053; 81001; 83690; 85027